=== PATIENT | female | born 1945 | race Caucasian/White ===

== ENCOUNTER 2020-07-24 19:00 | Emergency (ER) | payer BC ==
--- NOTE | 2020-07-24 19:55 | EDM.PDOC ---
ED HPI GENERAL MEDICAL PROBLEM - General Chief Complaint: General Stated Complaint: fell-L) knee pain Time Seen by Provider: 07/24/20 19:45 Source of Information: Reports: Patient History Limitations: Reports: No Limitations - History of Present Illness INITIAL COMMENTS - FREE TEXT/NARRATIVE: Elise is a 75 yo female who presents to the ED with c/o left knee pain. She reports she tripped over a threshold where her floor changes and landed on her knee. She reports instant pain. She reports she struggled to get up. She reports now it hurts to bear any weight on it. Denies any numbness or tingling. No other injuries or complaints. Onset: Today, Sudden Onset Date: 07/24/20 Onset Time: 17:00 Duration: Constant Location: Reports: Lower Extremity, Left Severity: Severe Improves with: Reports: None Worsens with: Reports: Rest Context: Reports: Activity Associated Symptoms: Reports: No Other Symptoms - Related Data Allergies Allergy/AdvReac Type Severity Reaction Status Date / Time sulfamethoxazole Allergy Hives Verified 07/24/20 19:51 [From Bactrim] trimethoprim [From Bactrim] Allergy Hives Verified 07/24/20 19:51 Home Meds: Home Meds Anastrozole 1 mg PO DAILY 08/11/13 [History] Gabapentin 300 mg PO BID 08/11/13 [History] Hydrochlorothiazide 25 mg PO DAILY 08/11/13 [History] Insulin Glarg,Human.Rec.Analog [Lantus] 36 units SQ DAILY 08/11/13 [History] Insulin Lispro [Humalog] 2 units SQ BRK 08/11/13 [History] LORazepam [Ativan] 0.5 mg PO Q6H PRN 08/11/13 [History] Naproxen Sodium [Aleve] 220 mg PO 08/11/13 [History] Pravastatin [Pravachol] 40 mg PO DAILY 08/11/13 [History] atenoloL [Tenormin] 50 mg PO DAILY 08/11/13 [History] lisinopriL [Prinivil] 20 mg PO DAILY 08/11/13 [History] ED ROS GENERAL - Review of Systems Review Of Systems: Comprehensive ROS is negative, except as noted in HPI. ED EXAM, GENERAL - Physical Exam Exam: See Below Exam Limited By: No Limitations General Appearance: Alert, WD/WN, No Apparent Distress Peripheral Pulses: 2+: Dorsalis Pedis (L) Extremities: Normal Range of Motion, No Pedal Edema, Normal Capillary Refill, Joint Swelling (mild swelling left anterolateral knee), Other (tenderness noted to anterolateral aspect of left knee) Psychiatric: Normal Affect, Normal Mood Skin Exam: Intact. No: Ecchymosis Course - Orders/Labs/Meds Orders: Active Orders 24 hr Category Date Time Status Knee 1V or 2V Lt [CR] Routine Exams 07/24/20 Taken - Re-Assessments/Exams Free Text/Narrative Re-Assessment/Exam: PLEASE SEE NURSES NOTE FOR PMH, PSH, SH & FH. Departure - Departure Time of Disposition: 20:17 Disposition: Home, Self-Care 01 Condition: Good Clinical Impression: Contusion of left knee Qualifiers: Encounter type: initial encounter Qualified Code(s): S80.02XA - Contusion of left knee, initial encounter - Discharge Information *PRESCRIPTION DRUG MONITORING PROGRAM REVIEWED*: Not Applicable *COPY OF PRESCRIPTION DRUG MONITORING REPORT IN PATIENT HILARIA: Not Applicable Instructions: Contusion, [id number] Referrals: Kushal Castro MD [Primary Care Provider] - Forms: ED Department Discharge Additional Instructions: - Recommend RICE therapies (rest, ice, compression and elevation) until pain improves - Tylenol or ibuprofen as needed for pain/swelling - Weight bearing as tolerated. May use crutches/walker as needed to avoid bearing weight on left lower extremity. - Recommend follow up with PCP if pain worsens or persists over the next 5-7 days - Return to ED for emergent needs - Problem List & Annotations (1) Contusion of left knee SNOMED Code(s): 95860317 Code(s): S80.02XA - CONTUSION OF LEFT KNEE, INITIAL ENCOUNTER Status: Acute Current Visit: Yes Qualifiers: Encounter type: initial encounter Qualified Code(s): S80.02XA - Contusion of left knee, initial encounter - Problem List Review Problem List Initiated/Reviewed/Updated: Yes - Assessment/Plan Assessment:: Contusion of left knee Plan: As above.
== END 2020-07-24 20:35 | disposition home or self-care (01) ==
LOC: CC.ED 19:00
DX: S80.02XA Contusion of left knee, initial encounter (principal); Z88.1 Allergy status to other antibiotic agents; Z79.899 Other long term (current) drug therapy; W01.0XXA Fall on same level from slipping, tripping and stumbling without subsequent striking against object, initial encounter
CPT/HCPCS: 73560-LT; 99283-25